=== PATIENT | male | born 1995 | race Two or more races ===

== ENCOUNTER → 2025-07-16 | Outpatient (CLI) | payer MEDICAID, SELFPAY ==
--- NOTE | 2025-07-16 13:10 | XR_ITS ---
EXAMINATION: Lumbar spine 3 views TECHNIQUE: AP lateral coned lateral lower lumbar spine 3 views Date and time: July 16, 2025, 1327 hours INDICATIONS: Low back pain beginning 4 years ago. FINDINGS: Satisfactory alignment lumbar vertebral bodies Moderate degenerative disc disease L4-L5, L5-S1 No fracture No spondylolisthesis IMPRESSION: Moderate degenerative disc disease L4-L5, L5-S1
== END | disposition home or self-care (01) ==
LOC: CDIM 13:00
PROVIDERS: PCP Nurse Practitioner Primary Care; Referring Provider Nurse Practitioner Primary Care; Visit Provider Nurse Practitioner Primary Care
DX: M51.370 Other intervertebral disc degeneration, lumbosacral region with discogenic back pain only (principal); M51.360 Other intervertebral disc degeneration, lumbar region with discogenic back pain only
CPT/HCPCS: 72100